=== PATIENT | male | born 1970 | race Native Hawaiian/Other Pacific Islander ===

== ENCOUNTER 2019-02-27 08:27 | Outpatient (CLI) | payer BC | END 2019-02-27 08:56 | disposition short-term general hospital (02) | LOC: AMB 08:27 | DX: R41.82 Altered mental status, unspecified (principal); R55 Syncope and collapse; R42 Dizziness and giddiness; W07.XXXA Fall from chair, initial encounter; Y92.69 Other specified industrial and construction area as the place of occurrence of the external cause | CPT/HCPCS: A0425; A0427 ==